=== PATIENT | female | born 1970 | race Caucasian/White ===

== ENCOUNTER → 2019-01-18 | Day surgery (SDC) | payer BC, OTHER ==
--- NOTE | 2019-01-21 18:48 | PATH ---
Surgical Pathology Report Patient Name: TAMMY PEÑA [facility]. Rec. #: [id number] /Age/Gender: 1970 (Age: 48) / F Account: [id number] Location: RADIOLOGY [facility] Taken: 01/18/2019 Received: 01/18/2019 Reported: 01/21/2019 Physicians: Jeannie Sawyer M.D. Specimen(s) Received RIGHT BREAST CORE BIOPSY Clinical History Nonpalpable lesion Ultrasound findings: Probably benign Final Diagnosis BREAST, RIGHT, 9:30, ULTRASOUND GUIDED BIOPSY: BENIGN BREAST PARENCHYMA WITH FIBROADENOMATOID CHANGES, STROMAL FIBROSIS, AND RARE DILATED DUCT. Electronically Signed Constance Peña M.D. Gross Description Received in formalin labeled "right 9:30," are 8 ricks-yellow, irregular to cylindrical fragments of fibroadipose tissue ranging from 0.2-0.6 cm in length and averaging 0.1 cm in diameter. The specimens are submitted in toto in one cassette. Time to formalin fixation: Less than one minute Total formalin fixation time: Approximately 6 hours. /01/18/2019 [facility]01/18/2019
== END | disposition home or self-care (01) ==
LOC: JRADUS-SUR 10:47
PROVIDERS: ATTEND Internal Medicine Geriatric Medicine
PROC: 0HBT3ZX Excision of Right Breast, Percutaneous Approach, Diagnostic (ICD-10-PCS; principal; 2019-01-18)
DX: D24.1 Benign neoplasm of right breast (principal)
CPT/HCPCS: 19083; 77065-TC; 87899; 88305-TC; A4648

== ENCOUNTER 2022-01-11 04:24 | Day surgery (SDC) | payer OTHER ==
[2022-01-05 17:54] VITALS: BMI 37.0
[2022-01-11] MEDS ORDERED: LIDOCAINE HCL 1%, 10 MG/ML (20ML VIAL) NR ONE (07:22)
[2022-01-11] MEDS ORDERED: LIDOCAINE HCL 1%, 10 MG/ML (20ML VIAL) ONE (07:26)
[2022-01-11] MEDS ORDERED: PROPOFOL 20 ML ONE ×2 (08:11)
[2022-01-11] MEDS ORDERED: MIDAZOLAM HCL 2 MG/2 ML SINGLE DOSE VIAL ONE (08:11)
[2022-01-11] MEDS ORDERED: BUPIVACAINE HCL/PF 0.25% (2.5MG/ML) 10 ML VIAL ONE (08:26)
[2022-01-11] MEDS ORDERED: ceFAZolin SODIUM 1 GM VIAL ONE (09:02)
[2022-01-11] MEDS ORDERED: BUPIVACAINE HCL/PF 0.25% (2.5MG/ML) 10 ML VIAL IJ ONE ×2 (09:09)
[2022-01-11] MEDS ORDERED: ceFAZolin SODIUM 1 GM VIAL IVPB ONE (09:09)
[2022-01-11] MEDS ORDERED: ONDANSETRON 4 MG/2 ML VIAL ONE (09:19)
[2022-01-11] MEDS ORDERED: KETOROLAC TROMETHAMINE 30 MG/1 ML VIAL ONE (09:20)
[2022-01-11] MEDS ORDERED: BACITRACIN 15 GM TUBE TOPICAL OINTMENT ONE (09:22)
[2022-01-11] MEDS ORDERED: BACITRACIN 15 GM TUBE TOPICAL OINTMENT TP ONE (09:23)
[2022-01-11] MEDS ORDERED: PROMETHAZINE HCL 25 MG/1 ML VIAL IVPUSH PRN (10:27)
[2022-01-11] MEDS ORDERED: oxyCODONE HCL 5 MG TABLET PO PRN (10:27)
[2022-01-11] MEDS ORDERED: ONDANSETRON 4 MG/2 ML VIAL IVPUSH PRN (10:27)
[2022-01-11] MEDS ORDERED: LACTATED RINGERS SOLUTION 1,000 ML IV SCH (10:30)
[2022-01-11 11:04] VITALS: BP 120/70; PULSE 70; TEMP 98
== END 2022-01-11 11:04 | disposition home or self-care (01) ==
LOC: JASU-SURG 04:24
PROVIDERS: ATTEND Surgery
PROC: 0HBHXZZ Excision of Right Upper Leg Skin, External Approach (ICD-10-PCS; principal; 2022-01-11 08:00)
DX: D17.23 Benign lipomatous neoplasm of skin and subcutaneous tissue of right leg (principal)
CPT/HCPCS: 81025; 88304-TC; 94760